=== PATIENT | male | born 1945 | race Caucasian/White ===

== ENCOUNTER 2018-03-30 22:08 | Emergency (ER) | payer MEDICARE ==
[~2018-03-30] VITALS: Ht 188 cm; Wt 79.4 kg
[2018-03-30] MEDS ORDERED: DIPHTH/TETANUS/ACEL. PERTUSSIS 0.5 ML SYR IM ONE (22:30)
--- NOTE | 2018-03-30 23:20 | Diagnostic Imaging Report ---
EXAMINATION: Head CT without contrast. HISTORY:Trauma, fall. COMPARISON:None. TECHNIQUE: Multidetector axial images were obtained from the foramen magnum to the vertex without contrast. The images were reconstructed using brain and bone algorithms. Thin section brain images were reformatted into coronal and sagittal planes. Dose modulation, iterative reconstruction, and/or weight based adjustment of the mA/kV was utilized to reduce the radiation dose to as low as reasonably achievable. Intravenous contrast: None IMAGE QUALITY: Acceptable. FINDINGS: Skull/scalp: Nonspecific heterogeneous bone marrow density particularly in the skull base and at the vertex may be related to osseous demineralization or renal osteodystrophy in appropriate clinical setting. Parenchyma: Nonspecific few, scattered supratentorial white matter hypodensity are likely related to small vessel ischemic changes. No acute hemorrhage, mass or acute major vascular territorial infarct. Arteries: No density suggestive of thrombosis. Dural sinuses: No abnormal density suggestive of thrombosis. Ventricles: Moderate compensated dilatation due to volume loss. No hydrocephalus. Extra-axial spaces: No abnormal density. Brain volume: Generalized age-related cerebral volume loss. Craniocervical junction: No mass, Chiari malformation, or basilar invagination. Sella: No mass. Paranasal/mastoid sinuses: Mild mucosal thickening in bilateral ethmoid sinuses. Minimal bubbly secretions within the right sphenoid sinus. IMPRESSION: 1. No acute intracranial abnormality, particularly no acute hemorrhage, mass or acute major vascular territorial infarct. 2. Mild supratentorial white matter microvascular ischemic changes. 3. Generalized age-related cerebral volume loss. Signed by: Dr. Madalyn Yoder M.D. on 03/30/2018 11:16 PM
[2018-03-31 00:04] VITALS: BP 139/67
--- OUTSIDE RECORDS SUMMARY | 2018-04-01 14:10 | XMS REPORT | Clinical Summary ---
Author Author RICKI [facility] Address Unknown Phone Unavailable Care Team Providers Care Patient Support Associate Name Role Phone PCP Unavailable Allergies No Known Allergies Current Medications Prescription Sig. Disp. Refills Start End Date Status Date alendronate (FOSAMAX) 70 Take 70 mg by mouth every Active MG tablet 7 days Take in the morning with a full glass of water, on an empty stomach, and do not take anything else by mouth or lie down for the next 30 min. . aspirin 81 MG EC tablet Take 81 mg by mouth Active daily. multivitamin per tablet Take 1 tablet by mouth Active daily. omega-3 fatty Take 1 capsule by mouth Active acids-vitamin E (FISH nightly. OIL) 1,000 mg Cap simvastatin (ZOCOR) 40 MG Take 40 mg by mouth Active tablet nightly. ergocalciferol (VITAMIN Take 50,000 Units by Active D2) 50,000 unit capsule mouth as directed Take by mouth every 14 days. . heparin injection 5,000 Inject 1 mL (5,000 Units 1 mL 0 07/27/19 Active units/mL for DVT total) subcutaneously 17 prophylaxis/dialysis every 12 (twelve) hours. lock/IV bolus melatonin 5 mg Tab tablet Take 1 tablet (5 mg 0 07/27/19 Active total) by mouth every 17 night as needed. acetaminophen (TYLENOL) Take 2 tablets (650 mg 30 tablet 0 07/27/19 07/22/19 325 MG tablet total) by mouth every 4 17 18 (four) hours as needed for Fever (temperature > 101 F) for up to 360 days. 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 Cervical stenosis of spinal canal 07/22/2016 Macrocytosis without anemia, MCV 100 on 07-19-2016 07/20/2016 Myelopathy (HCC), by hx 07/20/2016 Confusion 07/20/2016 Fall at home 07/20/2016 Head trauma 07/20/2016 Gait instability 07/19/2016 Family History Medical History Relation Name Comments Heart disease Brother Heart attack Father Relation Name Status Comments Brother Father Social History Tobacco Use Types Packs/Day Years Used Date Former Smoker Alcohol Use Drinks/Week oz/Week Comments Yes Sex Assigned at Date Recorded Not on file Last Filed Vital Signs Not on file Plan of Treatment Not on file Implants Implanted Type Area Quality Coordinator Device Expiration Model / Identifier Date Serial / Lot Bone Grft Dmi Dbx Pty 1ml [id number] - Bone N/A: Spine MUSCULOSKELETAL 08/23/2017 [id number] / [id number] Cervical TRANSPLANT FND [id number] Implanted: Qty: 1 on 07/24/2016 by [id number] / Josiah Graham MD Explanted: Matrix Floseal Hemo W/O Ndl 10 Cement/Dajuan N/A: Spine DALTON:BIOSCI 11/14/2017 [id number] / [id number] - [id number] ler/Adhesi Cervical / Implanted: Qty: 1 on 07/24/2016 by gisselle [id number] Josiah Graham MD Vitoss Bimodal Cement/Dajuan N/A: Spine CYNTHIA SPINE 02/11/2018 [id number] Implanted: Qty: 1 on 07/24/2016 by ler/Adhesi Cervical / Josiah Graham MD ve / [id number] Spacer As 4deg [id number] - Spine N/A: Spine CYNTHIA:CYNTHIA [id number] / [id number] Cervical SPINE / Implanted: Qty: 2 on 07/24/2016 by [id number] Josiah Graham MD Plt Aviator 30mm [id number] - Spine N/A: Spine CYNTHIA:CYNTHIA [id number] / [id number] Cervical SPINE / Implanted: Qty: 1 on 07/24/2016 by [id number] Josiah Graham MD Scr Sd 14mm [id number] - [id number] Spine N/A: Spine CYNTHIA:CYNTHIA [id number] / Implanted: Qty: 4 on 07/24/2016 by Cervical ORTHOPAED[place] / [place] [id number] [facility] Bone Aviator Self Drl 4x16 Spine N/A: Spine CYNTHIA:CYNTHIA [id number] / [id number] - [id number] Cervical SPINE / Implanted: Qty: 1 on 07/24/2016 by [id number] Josiah Graham MD Results Not on fileafter 03/29/2017
== END 2018-03-30 23:30 | disposition home or self-care (01) ==
LOC: FSED 22:08
DX: S01.01XA Laceration without foreign body of scalp, initial encounter (principal); W01.198A Fall on same level from slipping, tripping and stumbling with subsequent striking against other object, initial encounter; Y92.008 Other place in unspecified non-institutional (private) residence as the place of occurrence of the external cause
CPT/HCPCS: 70450; 99283